=== PATIENT | male | born 2000 | race African-American/Black ===

== ENCOUNTER 2025-07-09 21:11 | Emergency (ER) | payer OTHER ==
[~2025-07-09] VITALS: Ht 182.9 cm; Wt 109.1 kg
[2025-07-09 21:18] VITALS: TEMP 97.7
[2025-07-09] MEDS: LIDOCAINE 2% MDV 20 ML VIAL SC ONE (22:21)
[2025-07-10 00:31] VITALS: BP 113/84; O2SAT 99
== END 2025-07-10 00:39 | disposition home or self-care (01) ==
LOC: M ED 21:11 → EDBD 21:11 → M ED 07-10 00:39
DX: S62.636B Displaced fracture of distal phalanx of right little finger, initial encounter for open fracture (principal); V49.40XA Driver injured in collision with unspecified motor vehicles in traffic accident, initial encounter; Y92.9 Unspecified place or not applicable; Y93.9 Activity, unspecified; Y99.9 Unspecified external cause status; Z88.2 Allergy status to sulfonamides; Z91.010 Allergy to peanuts